=== PATIENT | male | born 1985 | race Caucasian/White ===

== ENCOUNTER 2022-07-03 09:30 | Outpatient (RCR) | payer MEDICARE, MEDICAID, SELFPAY ==
[2022-06-20 10:37] VITALS: BMI 24.2
[2022-06-20 10:38] VITALS: BP 108/80; PULSE 76; TEMP 36.8
--- NOTE | 2022-06-20 11:05 | PC.NURSE ---
Patient is a 36 year old single male who was referred to [facility] by his therapist d/t increased depression and anxiety sxs. Patient reports he has been isolating in his apartment and is feeling lonely. Patient reported, Limited day structure. I moved into a new apartment last year and its very small, feels claustrophobic. Patient reports he takes naps during the day. Patient is alert and oriented x4. Calm and cooperative. Presented with depressed mood and anxious affect. Denied SI or thoughts to harm himself. Patient feels his quality of life is poor. I gave Jose Manuel a copy of his safety plan if needed and I reviewed his plan with him. Patient denied any history or present use of any substances including ETOH or marijuana. Patient reports he is taking his medications as prescribed. He stated his prescriber is tapering him off Atomoxetine thus he is currently taking 40 mg daily. Unable to get a hold of patient's pharmacy at present to complete reconciliation of medications. [ End ]
--- NOTE | 2022-06-20 11:20 | P.HPPSP_ITS ---
[facility] Date of Service: 06/20/22 Chief Complaint: MDD, anxiety Sources of Information: patient interviewed, chart reviewed and crisis/core team assessment reviewed HPI Medical Problems Affecting Mental Status: No Narrative: Clinician's integrated assessment form reviewed prior to meeting with patient. Patient is a 36-year-old single male, referred to [facility] by his outpatient therapist. History of depression, ADD, and anxiety. Most recently has been experiencing symptoms including feeling lonely, isolation, hopeless and helpless at times, anhedonia, difficulty with sleep, decreased energy, fatigue, feeling fidgety and restless, decreased appetite, poor concentration. Denies any history of SI or current SI. Feels safe. He is engaged with outpatient providers, and is prescribed medications including atomoxetine, alprazolam, fluvoxamine, olanzapine. He states that he is currently being titrated off of atomoxetine, as he has not been effective in treating his ADD. Reports that he has not really had any precipitant to explain current symptoms. He lives by himself, is single. No children. States that he his parents and sibling are supportive, but has no other current supports. First noticed symptoms in middle school. Was diagnosed with a learning disability as 17. Patient was extremely anxious throughout interview. Reports that he does experience ruminative thoughts, some OCD type symptoms at times. He has never participated in a program such as this in the past, and says he feels a little overwhelmed at this time. However, he wishes to remain, in his hopeful that he will learn some new healthy coping skills while here. Past Psychiatric History: Med trials: straterra, not effective. Other meds, cannot recall names. OP psychiatrist: Jessica Ace, past 10 years. Therapist: Kirsten Mccann [facility], past 3 years No hx , [facility] Medical Evaluation Reviewed: Yes ON LICENSE OF [facility] Medical History No known health problems Family History: None Social History: Raised by both parents. Has a half brother. Obtained a GED. Lives alone. Family is supportive. Substance History: None reported. Trauma History: Denies. Diagnostics Vital Signs (24Hr): Vital Signs - 24 hr 06/20/22 10:38 Temperature 98.3 F Pulse Rate 76 Blood Pressure 108/80 BMI result Body Mass Index 24.2 Meds/Allergies Allergies Allergies Allergy/AdvReac Type Severity Reaction Status Date / Time cefaclor [From Ceclor] Allergy Hives Verified 06/20/22 10:36 sulfamethoxazole Allergy Hives Verified 06/20/22 10:36 [From Bactrim] trimethoprim [From Bactrim] Allergy Hives Verified 06/20/22 10:36 Mental Status Exam Mental Status Exam Narrative: Well-developed, well-nourished male, in NAD. Normal posture/gait. No tics or tremors, no abnormal movements. Anxious mood an affect. Patient Appearance: Well Grooomed Patient Orientation: Person, Place, Time and Situation Level of Consciousness: Awake and Appropriate Patient Behavior: Appropriate, Cooperative, Anxious and Good Eye Contact Mood Description: Anxious Affect Description: Depressed and Anxious Patient Cognition Impaired: No Ability to Follow Directions: Excellent Speech Pattern: Clear Memory Description: Intact Hallucinations: None Delusions: Not Present Thought Process: Intact Thought Content: positive for Obsessional Thoughts (Some OCD like symptoms, repetitive behaviors.) and positive for Perseveration (Rumination) Depressive Symptoms: Increased Anxiety, Difficulty Sleeping, Changes in Appetite (decreased), Loss of Int. in Activity, Hopelessness, Isolating-Friends/Family, Unhappiness, Increased Fatigue, Low Self Esteem, Loss of Energy and Difficulty Concentrating Judgement: Fair Assessment & Plan Assessment & Plan (1) Depression, major, severe recurrence: Status: Acute Code(s): F33.2 - Major depressive disorder, recurrent severe without psychotic features Assessment and Plan: Patient is a 36-year-old single male, referred to [facility] by his outpatient therapist, due to increased symptoms of depression and anxiety. Patient also has a history of ADD. He endorses current symptoms including increased anxiety, feeling lonely, isolated, hopeless and helpless at times, anhedonia, disrupted sleep. Reports that he feels tired, low energy, decreased appetite, and difficulty concentrating. No SI, either past or present. Has been working with outpatient therapist x3 years, working with outpatient psychiatrist 10 years. Reports that he does have some type OCD thoughts occasionally, with repetitive behaviors. Currently has been tapering Strattera, as it has not been effective. He states he has tried other medications in the past, cannot recall the names. He is currently residing in a studio apartment, feels isolated there. No history substance use, no history trauma. Describes his family as supportive. Currently prescribed Xanax 4 mg daily, fluvoxamine 100 mg daily, olanzapine 5 mg at bedtime. He is satisfied with the current medications, and does not want any medication changes at this time. He feels overwhelmed today in groups. States that he hopes to learn some new healthy coping skills while here. (2) Generalized anxiety disorder: Status: Acute Code(s): F41.1 - Generalized anxiety disorder (3) ADD (attention deficit disorder): Status: Acute Code(s): F98.8 - Other specified behavioral and emotional disorders with onset usually occurring in childhood and adolescence Plan 1. Continue with current [facility] plan of care. 2. Continue with current medications as prescribed by outpatient psychiatrist. 3. m follow-up as per protocol. Patient educated on: diagnosis, medication risk/benefits and therapeutic strategies Informed Consent: understands Reason for continued partial hosp. stay Substantial Risk for: inability to function and rapid decompensation Certification I certify that partial hospital treatment is medically necessary due to the symptoms and problems resulting from the patient's mental illness and the failure to treat the patient at the partial hospital level of care would likely result in the patient requiring inpatient psychiatric care which could not be prevented at a less intensive level of care. Time Spent With Patient Time: Total time managing care of this patient today __45__ minutes.
--- NOTE | 2022-06-25 10:58 | P.PNPSP_ITS ---
Subjective Subjective Date of Service: 06/25/22 Reason For Visit: MDD, anxiety Medical Problems Affecting Mental Status: No Interim History: Continues with depressed, anxious mood an affect. Continues with difficulty sleeping. No SI, feels safe. No safety concerns. Medication Compliance: Yes Side effects from medications: No Attending Groups: Yes Review of Systems Acute medical concerns: No Medical Review of Systems: unchanged Review of Systems Review of Systems Yes all other systems are reviewed and are negative Constitutional: Reports no additional constitutional complaints Mental Status Exam Mental Status Exam Narrative: NAD Patient Appearance: Well Grooomed Patient Orientation: Person, Place, Time and Situation Level of Consciousness: Awake and Appropriate Patient Behavior: Appropriate, Cooperative, Anxious and Good Eye Contact Mood Description: Depressed and Anxious Affect Description: Depressed and Anxious Patient Cognition Impaired: No Ability to Follow Directions: Excellent Speech Pattern: Clear Memory Description: Intact Hallucinations: None Delusions: Not Present Thought Process: Intact Thought Content: positive for Perseveration (Rumination) Depressive Symptoms: Increased Anxiety, Difficulty Sleeping, Loss of Int. in Activity, Hopelessness, Isolating-Friends/Family, Unhappiness, Increased Fatigue, Low Self Esteem, Loss of Energy and Difficulty Concentrating Judgement: Fair Diagnostics Vital Signs (24Hr): BMI result Body Mass Index 24.2 Assessment & Plan Assessment & Plan (1) Depression, major, severe recurrence: Status: Acute Code(s): F33.2 - Major depressive disorder, recurrent severe without psychotic features Assessment and Plan: Continues with anxiety, depression. States that they are the same as when he started here last week. Attending groups, not fully participating due to his level of anxiety. No SI, no safety concerns. We discussed several medication options, including increasing fluvoxamine dose, or adding p.r.n. olanzapine 2.5 during day for anxiety, or possibly adding p.r.n. hydroxyzine. Discussed medication options, including side effects both adverse and small, mechanism of action, alternatives to treatment. He was agreeable to start hydroxyzine at this time. (2) Generalized anxiety disorder: Status: Acute Code(s): F41.1 - Generalized anxiety disorder Plan 1. Continue with current [facility] plan of care. 2. Start hydroxyzine 25 mg b.i.d. p.r.n. for anxiety. 3. Continue with other medications as prescribed by outpatient provider. 4. Follow-up as per protocol. Patient educated on: diagnosis, medication risk/benefits and therapeutic strategies Informed Consent: understands Reason for contiued partial hosp. stay Substantial Risk for: inability to function and rapid decompensation Certification I certify that partial hospital treatment is medically necessary due to the symptoms and problems resulting from the patient's mental illness and the failure to treat the patient at the partial hospital level of care would likely result in the patient requiring inpatient psychiatric care which could not be prevented at a less intensive level of care. Total time managing care of this patient today _20___ minutes. Discharge Plan Discharge Attending provider: Conor Pate Medications: New hydroxyzine HCl 25 mg tablet 25 mg PO BID PRN (Reason: anxiety) Qty: 14 0RF No Action alprazolam 1 mg tablet 1 mg PO QID olanzapine 5 mg tablet 5 mg PO BEDTIME fluvoxamine 100 mg tablet 100 mg PO DAILY atomoxetine 40 mg capsule 40 mg PO BID Patient Comments: Patient stated he is tapering off the medication.
--- NOTE | 2022-06-26 15:30 | HO.PHP ---
Clients case was reviewed and opened today in treatment team.
--- NOTE | 2022-06-30 10:56 | P.PNPSP_ITS ---
Subjective Subjective Date of Service: 06/30/22 Reason For Visit: MDD, anxiety Medical Problems Affecting Mental Status: No Interim History: Continues depressed, anxious mood and affect. Continues fair sleep, 5 hours per night. No SI, no safety concerns. Finding hydroxyzine too sedating during day. Medication Compliance: Yes Side effects from medications: Yes (Hydroxyzine too sedating) Attending Groups: Yes Review of Systems Acute medical concerns: No Medical Review of Systems: unchanged Review of Systems Review of Systems Yes all other systems are reviewed and are negative Constitutional: Reports no additional constitutional complaints Mental Status Exam Mental Status Exam Narrative: NAD Patient Appearance: Well Grooomed Patient Orientation: Person, Place, Time and Situation Level of Consciousness: Appropriate Patient Behavior: Appropriate, Cooperative, Anxious and Good Eye Contact Mood Description: Depressed and Anxious Affect Description: Depressed and Anxious Patient Cognition Impaired: No Ability to Follow Directions: Good Speech Pattern: Clear and Soft-Spoken Memory Description: Intact Hallucinations: None Delusions: Not Present Thought Process: Intact Thought Content: positive for [place] Depressive Symptoms: Increased Anxiety, Difficulty Sleeping, Loss of Int. in Activity, Isolating-Friends/Family, Unhappiness, Increased Fatigue, Loss of Ener gy and Difficulty Concentrating Judgement: Fair Diagnostics Vital Signs (24Hr): BMI result Body Mass Index 24.2 Assessment & Plan Assessment & Plan (1) Depression, major, severe recurrence: Status: Acute Code(s): F33.2 - Major depressive disorder, recurrent severe without psychotic features Assessment and Plan: Continues depressed, anxious mood and affect. Has had increase of fluvoxamine to 150mg last week by his OP psychiatrist, does not yet notice any improvement. Continues fair sleep, 5 hours per night. No SI, no safety concerns. Finding hydroxyzine too sedating during day, asking for another medication to help manage daytime anxiety. We discussed trying the hydroxyzine at night only, in order to help improve sleep. He will try this. Discussed various medication options, including clonidine, adding low-dose olanzapine in daytime, trialing BuSpar. Patient not interested in clonidine, reports he has taken in the past and found it too sedating. Also finds olanzapine to sedating. Discussed BuSpar, including risks and benefits, alternatives to treatment, etc.. Willing to trial this at this time. (2) Generalized anxiety disorder: Status: Acute Code(s): F41.1 - Generalized anxiety disorder (3) ADD (attention deficit disorder): Status: Acute Code(s): F98.8 - Other specified behavioral and emotional disorders with onset usually occurring in childhood and adolescence Assessment and Plan: Has tapered down off Strattera. Not currently taking any stimulants, although reports positive effect when he has had them in the past. Plan 1. Continue with current [facility] plan of care. 2. Start buspar 10mg BID. 3. Continue with other medications as currently prescribed. 4. Follow-up as per protocol. Patient educated on: diagnosis, medication risk/benefits and therapeutic strategies Informed Consent: understands Reason for contiued partial hosp. stay Substantial Risk for: inability to function and rapid decompensation Certification I certify that partial hospital treatment is medically necessary due to the symptoms and problems resulting from the patient's mental illness and the failure to treat the patient at the partial hospital level of care would likely result in the patient requiring inpatient psychiatric care which could not be prevented at a less intensive level of care. Total time managing care of this patient today _25___ minutes. Discharge Plan Discharge Attending provider: Conor Pate Medications: New hydroxyzine HCl 25 mg tablet 25 mg PO BID PRN (Reason: anxiety) Qty: 14 0RF buspirone 10 mg tablet 10 mg PO BID Qty: 30 0RF No Action alprazolam 1 mg tablet 1 mg PO QID olanzapine 5 mg tablet 5 mg PO BEDTIME fluvoxamine 100 mg tablet 100 mg PO DAILY atomoxetine 40 mg capsule 40 mg PO BID Patient Comments: Patient stated he is tapering off the medication.
--- NOTE | 2022-07-03 11:20 | P.PNPSP_ITS ---
Subjective Subjective Date of Service: 07/03/22 Reason For Visit: MDD, anxiety Healthcare Proxy: No Guardianship: No Interim History: The patient has completed partial hospital program does feel less anxiety and depressive symptoms. Luvox was increased to 150 mg the patient did taper off of atomoxetine on his own did not feel it was helpful continues on olanzapine 5 mg did not find hydroxyzine helpful was too sedating feel safe for discharge Mental Status Exam Mental Status Exam Narrative: NAD Patient Appearance: Well Grooomed Patient Orientation: Person, Place, Time and Situation Level of Consciousness: Appropriate Patient Behavior: Appropriate, Cooperative, Anxious and Good Eye Contact Mood Description: Depressed and Flat Affect Description: Depressed and Flat Patient Cognition Impaired: No Ability to Follow Directions: Good Speech Pattern: Clear and Soft-Spoken Memory Description: Intact Hallucinations: None Delusions: Not Present Thought Process: Intact Thought Content: positive for [place] Depressive Symptoms: Increased Anxiety, Difficulty Sleeping, Loss of Int. in Activity, Isolating-Friends/Family, Unhappiness, Increased Fatigue, Loss of Ener gy and Difficulty Concentrating Judgement: Fair Judgement and Insight: No self-harming thoughts no psychotic symptoms Diagnostics Vital Signs (24Hr): BMI result Body Mass Index 24.2 Assessment & Plan Assessment & Plan (1) Depression, major, severe recurrence: Status: Acute Code(s): F33.2 - Major depressive disorder, recurrent severe without psychotic features (2) Generalized anxiety disorder: Status: Acute Code(s): F41.1 - Generalized anxiety disorder (3) ADD (attention deficit disorder): Status: Acute Code(s): F98.8 - Other specified behavioral and emotional disorders with onset usually occurring in childhood and adolescence Plan Patient stable for discharge was started on BuSpar for augmentation would consider TMS Patient educated on: diagnosis, medication risk/benefits and TMS Reason for contiued partial hosp. stay Substantial Risk for: stable for discharge Certification Patient stable for discharge Total time managing care of this patient today __20__ minutes. Discharge Plan Discharge Attending provider: Conor Pate Additional Instructions: New PCP appointment at [facility] with Aimee Subramanian NP on November at 10:00 am (arrive at 9:45). Address [address]. Office # [phone]. Medications: New buspirone 10 mg tablet 10 mg PO BID Qty: 30 0RF Continued olanzapine 5 mg tablet 5 mg PO BEDTIME Discontinued atomoxetine 40 mg capsule 40 mg PO BID Patient Comments: Patient stated he is tapering off the medication. No Action alprazolam 1 mg tablet 1 mg PO QID fluvoxamine 100 mg tablet 150 mg PO DAILY Patient Comments: Patient reports increased from 100 mg to 150 mg-Dr Morrow. Stand Alone Forms: Patient Portal Discharge page Patient Education: Depression (DC)
== END 2022-07-03 23:59 | disposition home or self-care (01) ==
LOC: HO.PHPA 09:30
PROVIDERS: Visit Provider Psychiatry & Neurology Psychiatry
DX: F33.2 Major depressive disorder, recurrent severe without psychotic features (principal); F41.1 Generalized anxiety disorder; F98.8 Other specified behavioral and emotional disorders with onset usually occurring in childhood and adolescence; Z79.899 Other long term (current) drug therapy
CPT/HCPCS: 90791; 90853